=== PATIENT | female | born 1975 | race Caucasian/White ===

== ENCOUNTER 2020-10-12 15:50 | Emergency (ER) | payer OTHER ==
[~2020-10-12] VITALS: Ht 162.6 cm; Wt 111.1 kg
[~2020-10-12 15:50] MED LIST: LABETALOL HCL100 MG; PEPCID40 MG PO; PHENERGAN25 MG PO; TORSEMIDE10 MG; TRIAMTERENE-HCT1 TA1
[2020-10-12] MEDS ORDERED: CLOTRIMAZOLE-BE15 GM TOP (18:10)
[2020-10-12] MEDS ORDERED: MEDROLPACK PO (18:10)
[2020-10-12] MEDS ORDERED: ALLEGRA ALLERG180 MG PO (18:10)
== END 2020-10-12 18:13 | disposition home or self-care (01) ==
LOC: ER 15:50
DX: L30.8 Other specified dermatitis (principal)